=== PATIENT | female | born 1945 | race African-American/Black ===

== ENCOUNTER 2023-05-01 13:04 | Emergency (ER) | payer OTHER ==
[~2023-05-01] VITALS: Ht 162.6 cm; Wt 83.5 kg
--- NOTE | 2023-05-01 13:20 | NUR ---
Placed in room 07 . Placed on manager cardiac, blood pressure machine and pulse oximeter. To gown for exam. Side rails up. Report given to SHEILA HAINES.
[2023-05-01 13:22] VITALS: BP_SYST 126; PULSE 89; RESP 20; TEMP 98; O2SAT 93
--- NOTE | 2023-05-01 13:22 | NUR ---
Pt brought by self, A&Ox4, pt was sent by PCP for Low Hgb level yesterday 7.3, pt denies weakness or SOB at this time, c/o abdominal pain and loss of appetite x 3 months, no N/V noted at this time, skin pink and warm, respirations even and unlabored, pt denies bleeding, VSS, will cont to monitor.
--- NOTE | 2023-05-01 13:24 | NUR ---
ER DR. SZYMANSKI AT THE BEDSIDE EXAMINING PT
[2023-05-01 14:00] LABS: BASOPHILS % (AUTO) 0.7 % (0.0-2.0); EOSINOPHILS # (AUTO) 0.1 K/uL (0.0-0.4); EOSINOPHILS % (AUTO) 2.3 % (0.0-4.0); HEMATOCRIT 24.8 % (36-48); HEMOGLOBIN 7.3 g/dL (12.0-16.0); LYMPHOCYTES # (AUTO) 1.4 K/uL (1.0-5.5); LYMPHOCYTES % (AUTO) 36.3 % (20.5-51.5); MEAN CORPUSCULAR HEMOGLOBIN 19 pg (27-31); MEAN CORPUSCULAR HGB CONC 30 % (32-36); MEAN CORPUSCULAR VOLUME 64 fL (79.0-98.0); MONOCYTES # (AUTO) 0.4 K/uL (0.0-1.0); NEUTROPHILS # (AUTO) 1.9 K/uL (1.8-7.7); NEUTROPHILS % (AUTO) 49.7 % (40.0-70.0); PLATELET COUNT (AUTO) 375 K/uL (130-430); RED CELL DISTRIBUTION WIDTH 21.2 % (9.0-15.0); WHITE BLOOD COUNT (AUTO) 3.8 K/uL (4.8-10.8)
[2023-05-01 14:15] LABS: ANION GAP 7 (5-15); CALCIUM 8.6 mg/dL (8.4-11.0); CHLORIDE 103 mmol/L (98-107); CREATININE 1.02 mg/dL (0.55-1.30); GLUCOSE 97 mg/dL (74-106); UREA NITROGEN, BLOOD 11 mg/dL (8-21)
[2023-05-01 14:19] LABS: ALANINE AMINOTRANSFERASE 6 U/L (12-78); ALBUMIN 3.4 g/dL (3.4-4.8); ASPARTATE AMINOTRANSFERASE 15 U/L (10-37); LIPASE 47 U/L (73-393); TOTAL BILIRUBIN 0.3 mg/dL (0.0-1.0)
[2023-05-01 14:20] LABS: PROTHROMBIN TIME 10.3 SECS (9.5-12.5)
[2023-05-01] MEDS ORDERED: POLY119P2 PO (14:59)
[2023-05-01] MEDS ORDERED: DOCU-144 PO (14:59)
[2023-05-01] MEDS ORDERED: FER300L PO (15:02)
[2023-05-01] MEDS ORDERED: POTASSIUM CHLORIDE 20 MEQ/PKT PACKET PO ONE (15:15)
--- NOTE | 2023-05-01 15:16 | NUR ---
Pt A&Ox4, VSS, respirations even and unlabored
[2023-05-01 15:42] VITALS: BP_SYST 118; PULSE 73; RESP 13; TEMP 98; O2SAT 96
--- NOTE | 2023-05-01 15:42 | NUR ---
Patient given written and verbal discharge instructions and verbalizes understanding. ER MD discussed with patient the results and treatment provided. Patient in stable condition. ID arm band removed. IV catheter removed intact and dressing applied, no active bleeding. Rx of Ferrous Sulfate, Colace, Miralax given. Patient educated on pain management and to follow up with PMD. Pain Scale 2/10. Opportunity for questions provided and answered. Medication side effect fact sheet provided.
== END 2023-05-01 15:42 | disposition home or self-care (01) ==
LOC: SED 13:04
DX: D50.9 Iron deficiency anemia, unspecified (principal); K59.00 Constipation, unspecified; E87.6 Hypokalemia; I10 Essential (primary) hypertension; Z91.018 Allergy to other foods; Z79.899 Other long term (current) drug therapy
CPT/HCPCS: 36415; 80053; 83690; 85025; 85610-TC; 85730-TC; 86886; 86900; 86901; 99283